=== PATIENT | male | born 2000 | race Caucasian/White ===

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

== ENCOUNTER 2021-02-14 16:29 | Emergency (ER) | payer OTHER, SELFPAY ==
--- NOTE | ~2021-02-14 | XR_ITS ---
EXAMINATION: XR finger 1st LT min 2V DATE: 02/14/2021 16:56 INDICATION: Pain to the mid to distal left thumb post blunt trauma TECHNIQUE: Dorsal palmar, lateral and oblique views of the left first digit were obtained COMPARISON: Left hand radiographs dated 12/02/2018 FINDINGS: Bone alignment is normal. No fracture. Joint spaces are normal. Soft tissue swelling about the first interphalangeal joint. IMPRESSION: 1. No osseous abnormality at the left thumb. Reviewed, dictated and finalized at location A.
[2021-02-14 16:40] VITALS: BP 128/86; PULSE 90; RESP 18; TEMP 37.1; O2SAT 99
--- NOTE | 2021-02-14 17:15 | ED.UPPEXIN ---
HPI - Extremity Injury (Upper) General Chief Complaint: Extremity Injury, Upper Stated Complaint: Thumb complaint Time Seen by Provider: 02/14/21 16:56 Source: patient and RN notes reviewed Mode of arrival: ambulatory Limitations: no limitations History of Present Illness HPI narrative: Patient presents today complaining of an injury to his left thumb. He was holding a 60 pound mallet with his right hand while making a patio at home 2 hours prior to arrival. He struck his left thumb with the mallet injuring it. He does report some tingling at the base of the thumb. Currently rates his pain 7/10. He did take some gabapentin that was leftover from a previous injury. Denies any relief. Pain increases with movement. Related Data Allergies Allergy/AdvReac Type Severity Reaction Status Date / Time No Known Drug Allergies Allergy Unknown Unknown Verified 06/12/20 15:57 Review of Systems Review of Systems: Narrative: CONSTITUTIONAL: Denies body aches, fever, chills, or sweats. EYES: Denies visual changes, redness, or discharge. ENT: Denies rhinorrhea, congestion, sore throat, or otalgia. CARDIOVASCULAR: Denies chest pain, palpitations, or edema. RESPIRATORY: Denies cough or dyspnea. GASTROINTESTINAL: Denies abdominal pain, nausea, vomiting, or diarrhea. GENITOURINARY: Denies dysuria or hematuria. SKIN: Denies rash, itching, or wounds. MUSCULOSKELETAL: Denies back pain, or myalgia. + Left thumb injury NEUROLOGIC: Denies headache, numbness, tingling, or weakness. PSYCH: Denies depression or anxiety. [facility] Past Medical History Medical History ADHD Bipolar 1 disorder Fracture of left wrist OCD (obsessive compulsive disorder) Social History Social History Smoking packs per day: 1 Smoking cigarettes per day: 20.0 Years smoked: 5 Smoking pack-years: 5.00 Smoking status: Current every day smoker Tobacco type: cigarettes Alcohol intake: unknown Substance use: unknown Gender identity (if verbalized by the patient): Male Comments At time of signature, I have reviewed and agree with nursing past medical, surgical, social and family history unless otherwise noted. Please see nursing chart for further information. There is no relevant family history pertinent to the presenting complaint Exam Narrative: Exam Narrative: GENERAL: Well-appearing, well-nourished, and in no acute distress. HEAD: Normocephalic, atraumatic. EYES: EOMI. No redness or drainage. Conjunctivae normal. ENT: Mucous membranes pink and moist. NECK: Normal AROM. CHEST: No respiratory distress. EXTREMITIES: Left thumb: Tenderness about the thumb. No edema or ecchymosis noted. Patient does not have a subungual hematoma that takes up to the proximal half of the thumbnail. Pain to the interphalangeal joint with range of motion. The range of motion is limited due to pain. Distal sensation intact. Capillary refill normal. No snuffbox tenderness. SKIN: Warm, dry, no rash. Capillary refill normal. Normal skin turgor. NEURO: No focal deficits. Alert and oriented x3. Gait steady. PSYCH: Normal affect. No signs of depression or anxiety. Course Vital Signs Vital signs: Vital Signs Temperature 98.7 F 02/14/21 16:40 Pulse Rate 90 02/14/21 16:40 Respiratory Rate 18 02/14/21 16:40 Blood Pressure 128/86 02/14/21 16:40 Pulse Oximetry 99 02/14/21 16:40 Temperature 98.7 F 02/14/21 16:40 Pulse Rate 90 02/14/21 16:40 Respiratory Rate 18 02/14/21 16:40 Blood Pressure 128/86 02/14/21 16:40 Pulse Oximetry 99 02/14/21 16:40 Reviewed. Pt has been instructed to follow up with his PCP regarding his elevated blood pressure today. Procedures Nail Trephination Nail Trephination #1: Nail Trephination Date: 02/14/21 Nail Trephination Time: 17:16 Time out: Yes Location (fing
== END 2021-02-14 17:26 | disposition home or self-care (01) ==
PROVIDERS: Emergency Provider Nurse Practitioner; PCP Physician Assistant
DX: S60.112A Contusion of left thumb with damage to nail, initial encounter (principal); W27.8XXA Contact with other nonpowered hand tool, initial encounter; F17.210 Nicotine dependence, cigarettes, uncomplicated
CPT/HCPCS: 11740; 73140; 99213; G0463

== ENCOUNTER 2021-12-12 14:43 | Emergency (ER) | payer SELFPAY ==
[2021-12-12 14:50] VITALS: BP 123/80; PULSE 85; RESP 16; TEMP 36.6; O2SAT 99
--- NOTE | 2021-12-12 15:38 | ED.URI ---
HPI - URI/Sore Throat General Chief Complaint: Upper Respiratory Infection Stated Complaint: Sore Throat Time Seen by Provider: 12/12/21 15:39 Source: patient and RN notes reviewed Mode of arrival: ambulatory Limitations: no limitations History of Present Illness HPI Narrative: 21 male presented for complaint of sore throat, onset today. He states pain is worse with swallowing. He called into work because he could not eat breakfast. Has been taking Tylenol. Endorses headache and postnasal drainage. Denies cough, shortness of breath, nausea, vomiting, diarrhea, fever or chills. denies sick contacts. He is not vaccinated for flu or Covid. NKDA. CESAR elicited complaint: cough Related Data Allergies Allergy/AdvReac Type Severity Reaction Status Date / Time No Known Drug Allergies Allergy Unknown Unknown Verified 12/12/21 15:07 Review of Systems Review of Systems: CONSTITUTIONAL: denies malaise, chills, sweats, fever EYES: Denies visual changes, redness, or discharge ENT: Reports sore throat denies rhinorrhea, congestion, sinus pain, otalgia CARDIOVASCULAR: Denies chest pain, palpitations, edema RESPIRATORY: Reports cough, post nasal drainage. Denies dyspnea GASTROINTESTINAL: Denies abdominal pain, nausea, vomiting, diarrhea SKIN: Denies rash or itching MUSCULOSKELETAL:denies myalgia NEUROLOGIC: Denies headache [facility] Past Medical History Medical History ADHD Bipolar 1 disorder Fracture of left wrist OCD (obsessive compulsive disorder) Social History Social History Smoking packs per day: 1 Smoking cigarettes per day: 20.0 Years smoked: 5 Smoking pack-years: 5.00 Smoking status: Current every day smoker Tobacco type: cigarettes Alcohol intake: unknown Substance use: unknown Gender identity (if verbalized by the patient): Male Exam Narrative: GENERAL: Ill-appearing, nontoxic HEAD: Normocephalic EYES: PERRLA, conjunctivae clear ENT: Mucous membranes moist. TM pearly ramachandran with dull light reflex bilaterally; no tragal tenderness. Oropharynx erythematous without lesions or exudate, no drooling, no hoarseness, no trismus, uvula midline. No tripod positioning, muffled voice, soft palate or pharyngeal wall bulging NECK: Supple. No lymphadenopathy CHEST: Clear to auscultation, breath sounds equal. No wheezing, rhonchi, rales, or stridor. No respiratory distress, speaks in full sentences. HEART: Regular rate and rhythm. No murmur heard. SKIN: Warm, dry, no rash. NEURO: Alert and oriented x3. PSYCH: Normal mood and affect Course Course Emergency Course: Patient is aware of diagnosis, understands and agrees to treatment plan. Anticipatory guidance given. Patient agrees to follow-up as directed and is aware of reasons to seek care at the emergency department. Portions of this record may have been created with voice recognition software Level of Care: Express Care Visit Vital Signs Vital signs: Vital Signs Temperature 97.8 F 12/12/21 14:50 Pulse Rate 85 12/12/21 14:50 Respiratory Rate 16 12/12/21 14:50 Blood Pressure 123/80 12/12/21 14:50 Pulse Oximetry 99 12/12/21 14:50 Temperature 97.8 F 12/12/21 14:50 Pulse Rate 85 12/12/21 14:50 Respiratory Rate 16 12/12/21 14:50 Blood Pressure 123/80 12/12/21 14:50 Pulse Oximetry 99 12/12/21 14:50 reviewed MDM - URI/Sore Throat MDM Narrative Medical decision making narrative: Strep positive, patient is appropriate for outpatient treatment with antibiotics. Differential Diagnosis Differential diagnosis: Likely upper respiratory infection, sinusitis, viral infection and pharyngitis Lab Data Attestation: I reviewed the patient's lab results. Labs: Strep Screen Positive Group A Strep *(Reference Range: Negative)* Discharge Plan Discharge Clinical Imp
== END 2021-12-12 15:50 | disposition home or self-care (01) ==
PROVIDERS: Emergency Provider Nurse Practitioner Family; PCP Physician Assistant
DX: J02.0 Streptococcal pharyngitis (principal)
CPT/HCPCS: 87880; 99213; G0463

== ENCOUNTER 2022-11-15 11:35 | Emergency (ER) | payer SELFPAY ==
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
[2022-11-15 11:45] VITALS: BP 123/88; PULSE 84; RESP 16; TEMP 37.2; O2SAT 100
== END 2022-11-15 12:35 | disposition home or self-care (01) ==
PROVIDERS: Emergency Provider Nurse Practitioner Family; PCP Emergency Medicine
DX: S01.81XA Laceration without foreign body of other part of head, initial encounter (principal); W19.XXXA Unspecified fall, initial encounter; F17.210 Nicotine dependence, cigarettes, uncomplicated
CPT/HCPCS: 12011; 99212; G0463

== ENCOUNTER 2023-03-11 10:05 | Emergency (ER) | payer OTHER, SELFPAY ==
--- NOTE | ~2023-03-11 | XR_ITS ---
Lumbosacral Spine: AP, oblique, and lateral views Clinical History: Pain Findings: The normal lordotic curve is maintained. The vertebral bodies and posterior elements are i ntact. The intervertebral disc spaces are preserved. The sacroiliac joints are normally outlined. Impression: No significant abnormality. Reviewed, dictated and finalized at [facility]. Impression: No significant abnormality.
[2023-03-11 10:10] VITALS: BP 126/71; PULSE 63; RESP 14; TEMP 37.1; O2SAT 99
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
== END 2023-03-11 11:04 | disposition home or self-care (01) ==
PROVIDERS: Emergency Provider Nurse Practitioner Family
DX: S39.012A Strain of muscle, fascia and tendon of lower back, initial encounter (principal); V38.6XXA Passenger in three-wheeled motor vehicle injured in noncollision transport accident in traffic accident, initial encounter; F17.210 Nicotine dependence, cigarettes, uncomplicated
CPT/HCPCS: 72110; 81003; 99213; G0463

== ENCOUNTER 2023-03-20 13:02 | Emergency (ER) | payer OTHER, SELFPAY ==
[2023-03-20 13:06] VITALS: BP 121/62; PULSE 76; RESP 20; TEMP 36.7; O2SAT 100
--- NOTE | 2023-03-20 13:43 | ED.EYEPROB ---
HPI - Eye Problem General Chief complaint: Eye Problems Stated complaint: right eye Time Seen by Provider: 03/20/23 13:43 Source: patient Mode of arrival: ambulatory Limitations: no limitations History of Present Illness HPI Narrative: 22-year-old male presents with complaint of right upper eyelid swelling, redness, tenderness starting yesterday. No other symptoms today. All systems reviewed and negative except as noted above. Related Data Allergies Allergy/AdvReac Type Severity Reaction Status Date / Time No Known Drug Allergies Allergy Unknown Unknown Verified 03/11/23 10:13 Review of Systems Review of Systems: CONSTITUTIONAL: Denies fever, chills, or sweats. EYES: Denies visual changes, redness, or discharge. Reports redness, swelling and tenderness to right upper eyelid. ENT: Denies rhinorrhea, congestion, sore throat, or otalgia. CARDIOVASCULAR: Denies chest pain, palpitations, or edema. RESPIRATORY: Denies cough or dyspnea. GASTROINTESTINAL: Denies abdominal pain, nausea, vomiting, or diarrhea. GENITOURINARY: Denies dysuria or hematuria. SKIN: Denies rash or itching. MUSCULOSKELETAL: Denies back pain, joint pain, or myalgia. NEUROLOGIC: Denies headache, numbness, or weakness. PSYCHIATRIC: Denies anxiety or depression. All other systems reviewed are negative, except as documented in HPI. [facility] Past Medical History Medical History ADHD Bipolar 1 disorder Fracture of left wrist OCD (obsessive compulsive disorder) Social History Social History Smoking packs per day: 1 Smoking cigarettes per day: 20.0 Years smoked: 5 Smoking pack-years: 5.00 Smoking status: Current every day smoker Tobacco type: cigarettes Alcohol intake: unknown Substance use: unknown Living arrangements: with family Gender identity (if verbalized by the patient): Male Comments At time of signature, agree with nursing past medical, surgical, social and family history. There is no relevant family history pertinent to the presenting complaint. Exam Narrative: GENERAL: This is a well-nourished, well-developed patient, in no apparent distress. HEAD: normocephalic, atraumatic. EYES: PERRL. Sclera clear/white. Vision is grossly intact. Erythema call Internal pustule medial aspect of right upper eyelid with tenderness on palpation. EARS: External ears normal NOSE: External nose normal NECK: Neck supple, non-tender without lymphadenopathy, masses or thyromegaly. CARDIOVASCULAR: Regular rate and rhythm without murmurs, gallops, or rubs. RESPIRATORY: Clear to auscultation. Breath sounds equal bilaterally. No wheezes, rales, or rhonchi. SKIN: warm, Dry, intact with no suspicious lesions or rash, good texture and turgor. NEURO: awake, alert, and oriented to person, place and time. There were no obvious focal neurologic abnormalities. EXTREMITIES: No joint tenderness, effusion, or edema noted. Course Course Level of Care: Express Care Visit Vital Signs Vital signs: Vital Signs Temperature 36.7 C 03/20/23 13:06 Pulse Rate 76 03/20/23 13:06 Respiratory Rate 20 03/20/23 13:06 Blood Pressure 121/62 03/20/23 13:06 Pulse Oximetry 100 03/20/23 13:06 Oxygen Delivery Room Air 03/20/23 13:06 Temperature 36.7 C 03/20/23 13:06 Pulse Rate 76 03/20/23 13:06 Respiratory Rate 20 03/20/23 13:06 Blood Pressure 121/62 03/20/23 13:06 Pulse Oximetry 100 03/20/23 13:06 Oxygen Delivery Room Air 03/20/23 13:06 Reviewed MDM - Eye Problem MDM Narrative Medical decision making narrative: Patient is aware of diagnosis, understands and agrees to treatment plan. Anticipatory guidance given. Patient agrees to follow-up as directed and is aware of reasons to seek care at the emergency department. Portions of this record may have been created with voice recognition software
== END 2023-03-20 13:50 | disposition home or self-care (01) ==
PROVIDERS: Emergency Provider Nurse Practitioner Family
DX: H00.021 Hordeolum internum right upper eyelid (principal); F17.210 Nicotine dependence, cigarettes, uncomplicated
CPT/HCPCS: 99213; G0463

== ENCOUNTER 2023-04-19 10:30 | Emergency (ER) | payer OTHER, SELFPAY ==
--- NOTE | 2023-04-19 10:37 | ED.LOWEXIN ---
HPI - Extremity Injury (Lower) General Chief Complaint: Extremity Injury, Lower Stated Complaint: Left Ankle Injury/Fall Time Seen by Provider: 04/19/23 10:46 Source: patient and RN notes reviewed Mode of arrival: ambulatory Limitations: no limitations History of Present Illness HPI Narrative: 22-year-old male presents with concern for ankle injury. He reports yesterday he fell down some steps on his front porch. His main complaint is an abrasion on the 1st digit the left foot. He reports he has been limping in order to avoid putting pressure on the abrasion. He reports some mild ankle discomfort. He denies decreased range of motion, strength, sensation and the ankle, foot or digits. He denies intervention. MD complaint: ankle injury Related Data Allergies Allergy/AdvReac Type Severity Reaction Status Date / Time No Known Drug Allergies Allergy Unknown Unknown Verified 03/11/23 10:13 Review of Systems Review of Systems: CONSTITUTIONAL: Denies malaise, chills, sweats, or fever. SKIN: Denies rash or itching, laceration, redness, warmth, swelling. Reports abrasion to the 1st digit of left foot MUSCULOSKELETAL: Reports left ankle pain NEUROLOGIC: Denies numbness, weakness All systems reviewed & are unremarkable except as noted in HPI and below PMFSH Past Medical History Medical History ADHD Bipolar 1 disorder Fracture of left wrist OCD (obsessive compulsive disorder) Social History Social History Smoking packs per day: 1 Smoking cigarettes per day: 20.0 Years smoked: 5 Smoking pack-years: 5.00 Smoking status: Current every day smoker Tobacco type: cigarettes Alcohol intake: unknown Substance use: unknown Living arrangements: with family Gender identity (if verbalized by the patient): Male Comments At time of signature, agree with nursing past medical, surgical, social and family history. There is no relevant family history pertinent to the presenting complaint Exam Narrative: GENERAL: Well-appearing, well-nourished, and in no acute distress. HEAD: Normocephalic, atraumatic. EYES: PERRLA, conjunctivae clear NECK: Supple. CHEST: Speaks in full sentences. No respiratory distress. HEART: Regular rate and rhythm. Normal and equal peripheral pulses. EXTREMITIES: Left ankle, foot, digits have normal strength and sensation, normal range of motion. No edema or ecchymosis. 5/5 strength with ankle and digit flexion and extension. Normal sensation with sensitivity to light touch and pain. No point tenderness. No no skin tenting, no devitalized tissue or atrophy, no trophic changes, no obvious deformity, alignment normal, nearby joints and structures intact. Distal pulses palpable and equal bilaterally, skin warm, dry, pink. Capillary refill less than 3 seconds. SKIN: Warm, dry, no rash. Abrasion noted to the distal 1st digit of the left foot with scabbing NEURO: Alert and oriented x3. PSYCH: Normal mood and affect Course Course Emergency Course: Neosporin and bandage applied to the abrasion Patient is aware of diagnosis, understands and agrees to treatment plan. Anticipatory guidance given. Patient agrees to follow-up as directed and is aware of reasons to seek care at the emergency department. Portions of this record may have been created with voice recognition software Level of Care: Express Care Visit Vital Signs Vital signs: Reviewed. MDM - Extremity Injury (Lower) MDM Narrative Medical decision making narrative: Patients injury and pain is consistent with musculoskeletal etiology. No signs of neurological or vascular compromise on exam. Compartments and tissues are soft without signs of compartment syndrome. Pain is felt appropriate for further evaluation on an outpatient basis. Critical Care Time Critical Care Time Critical Care Time: No Discharge Plan Discharg
[2023-04-19 10:41] VITALS: BP 145/68; PULSE 101; RESP 16; TEMP 36.9; O2SAT 98
[2023-04-19 10:43] VITALS: BP 145/68; PULSE 101; RESP 16; TEMP 36.9; O2SAT 98
== END 2023-04-19 10:59 | disposition home or self-care (01) ==
LOC: EXPBETH 10:35
PROVIDERS: Emergency Provider Nurse Practitioner
DX: S93.402A Sprain of unspecified ligament of left ankle, initial encounter (principal); S90.412A Abrasion, left great toe, initial encounter; S96.912A Strain of unspecified muscle and tendon at ankle and foot level, left foot, initial encounter; W10.9XXA Fall (on) (from) unspecified stairs and steps, initial encounter; F17.210 Nicotine dependence, cigarettes, uncomplicated
CPT/HCPCS: 99212; G0463

== ENCOUNTER 2023-11-09 15:32 | Emergency (ER) | payer OTHER, SELFPAY ==
[2023-11-09 15:40] VITALS: BP 148/75; PULSE 74; RESP 18; TEMP 36.7; O2SAT 99
--- NOTE | 2023-11-09 15:48 | ED.NAVMDI ---
HPI - Nausea/Vomiting/Diarrhea General Chief complaint: Nausea/Vomiting/Diarrhea Stated complaint: Vomiting Source: patient, RN notes reviewed and old records reviewed Mode of arrival: ambulatory Limitations: no limitations History of Present Illness HPI Narrative: 23-year-old male presents to Express Care with complaint nausea vomiting that started today. Patient states vomited 3 or 4 times. Patient states last vomited at noon today. Patient states also has body aches and chills. Patient denies diarrhea or known fever. Related Data Allergies Allergy/AdvReac Type Severity Reaction Status Date / Time No Known Drug Allergies Allergy Unknown Unknown Verified 11/09/23 15:48 Review of Systems Constitutional: Constitutional: Reports no additional constitutional complaints, Reports body ache(s), Reports chills, Denies fatigue, Denies fever(s) and Denies headache(s) Eyes: Eyes: Reports no additional eye complaints and Denies blurry vision ENT: Reports system reviewed and no additional complaints, except as documented, Denies vertigo, Denies dizziness, Denies ear discharge, Denies otalgia, Denies facial pain, Denies headache(s), Denies nasal congestion, Denies nasal discharge, Denies sinus pain, Denies sinus pressure and Denies sore throat Cardiovascular: Cardiovascular: Reports no additional cardiovascular complaints, Denies chest pain, Denies chest pain at rest, Denies rapid heart rate and Denies dyspnea Respiratory: Respiratory: Reports no additional respiratory complaints, Denies chest congestion, Denies cough, Denies pain on inspiration, Denies pain with cough and Denies dyspnea Gastrointestinal: Gastrointestinal: Denies abdominal pain, Denies diarrhea, Reports nausea and Reports vomiting Musculoskeletal: Musculoskeletal: Reports myalgias Integumentary/Breasts: Skin/Breast: Denies rash Neurologic: Reports system reviewed and no additional complaints, except as documented, Denies vertigo, Denies dizziness and Denies headache(s) Endocrine: Endocrine: Denies fatigue [facility] Past Medical History Medical History ADHD Bipolar 1 disorder Fracture of left wrist OCD (obsessive compulsive disorder) Social History Social History Smoking packs per day: 1 Smoking cigarettes per day: 20.0 Years smoked: 5 Smoking pack-years: 5.00 Smoking status: Current every day smoker Tobacco type: cigarettes Alcohol intake: unknown Substance use: unknown Living arrangements: with family Gender identity (if verbalized by the patient): Male Comments At the time of my signature, I reviewed and agree with the nursing past medical, surgical, social, and family history. There is no relevant family history pertinent to the patient complaint. Exam Const: General: cooperative, healthy appearing, no acute distress and well nourished Nutritional Appearance: well nourished Orientation/consciousness: patient oriented x3 Limitations: no limitations HENMT: Head: normal to inspection and normocephalic Ears: external ears normal, TM's normal bilaterally, EAC's normal and mastoids normal Face/Nose/Sinus: normal facial exam Face and sinus: normal facial exam Mouth: Yes Normal oral and palatal mucosa present, Yes oropharynx normal and Yes moist mucous membranes Throat: posterior oropharynx normal, tonsils normal, uvula midline and no uvular edema Eyes: General: appearance normal, both eyes and all related structures Sclera: sclerae normal Pupils: Equal, round and reactive pupils present Resp: Effort & Inspection: normal respiratory effort, able to speak in complete sentences, no audible wheezes, no cough, no respiratory distress and no retractions Auscultation: clear to auscultation bilaterally, no crackles, no rales, no rhonchi and no wheezes Cardio: Rate: regular rate Rhythm: regular rhythm GI: GI Palp: No abdominal te
[2023-11-09 16:08] LABS: Glucose Point of Care 83 mg/dl (65-105)
== END 2023-11-09 16:20 | disposition home or self-care (01) ==
PROVIDERS: Emergency Provider Registered Nurse
DX: A08.4 Viral intestinal infection, unspecified (principal); Z20.822 Contact with and (suspected) exposure to COVID-19; F17.210 Nicotine dependence, cigarettes, uncomplicated
CPT/HCPCS: 82948; 87426; 87804; 99213; G0463

== ENCOUNTER 2023-12-07 17:51 | Emergency (ER) | payer OTHER, SELFPAY ==
[2023-12-07 18:16] VITALS: BP 113/67; PULSE 80; RESP 16; TEMP 37; O2SAT 99
--- NOTE | 2023-12-07 18:58 | ED.DENTAL ---
HPI - Dental/Oral General Chief complaint: Dental/Oral Stated complaint: Toothache Time Seen by Provider: 12/07/23 18:47 Source: patient, RN notes reviewed and old records reviewed Mode of arrival: ambulatory Limitations: no limitations History of Present Illness HPI Narrative: 23-year-old male to Express Care with complaint of dental pain to right lower molar that has become acutely worse over past 2 days. Patient states that approximately 3 months ago he fractured tooth while eating I cough. Patient attempted to see dentist at that time and was told he would have to wait several months to be seen. Patient endorses he has been utilizing cannabis use for pain. Patient endorsing pain 2/10 at time of exam. Patient denies throat pain, throat swelling, fevers, headache. Teeth map: 1. Severity scale (1-10): 2 Related Data Allergies Allergy/AdvReac Type Severity Reaction Status Date / Time No Known Drug Allergies Allergy Unknown Unknown Verified 12/07/23 18:25 Review of Systems Review of Systems: All systems reviewed & are unremarkable except as noted in HPI and below Constitutional: Constitutional: Reports no additional constitutional complaints and Denies fever(s) Eyes: Eyes: Reports no additional eye complaints ENT: Denies bleeding gums, Reports dental pain, Denies facial pain, Denies headache(s), Denies lip swelling, Denies nasal obstruction and Denies neck pain Cardiovascular: Cardiovascular: Reports no additional cardiovascular complaints, Denies chest pain and Denies dyspnea Respiratory: Respiratory: Reports no additional respiratory complaints, Denies cough and Denies dyspnea Musculoskeletal: Musculoskeletal: Reports no additional musculoskeletal complaints Neurologic: Reports system reviewed and no additional complaints, except as documented Psychiatric: Psychiatric: Reports no additional psychiatric complaints [facility] Past Medical History Medical History ADHD Bipolar 1 disorder Fracture of left wrist OCD (obsessive compulsive disorder) Social History Social History Smoking packs per day: 1 Smoking cigarettes per day: 20.0 Years smoked: 5 Smoking pack-years: 5.00 Smoking status: Current every day smoker Tobacco type: cigarettes Alcohol intake: unknown Substance use: unknown Living arrangements: with family Gender identity (if verbalized by the patient): Male Comments At the time of my signature, I reviewed and agree with the nursing past medical, surgical, social, and family history. There is no relevant family history pertinent to the patient complaint. Exam Const: General: cooperative, healthy appearing, comfortable, no acute distress, alert and well nourished Nutritional Appearance: well nourished Orientation/consciousness: patient oriented x3 Limitations: no limitations HENMT: Head: normal to inspection Ears: external ears normal Face/Nose/Sinus: Normal external nose present, Normal nares present, normal facial exam, No erythema and No edema Face and sinus: normal facial exam, no erythema and no edema Mouth: Yes Normal oral and palatal mucosa present, Yes tongue normal, Yes oropharynx normal, Yes moist mucous membranes and No malodorous breath Teeth and gingiva: gingiva abnormal hypertrophic, edematous and tender; without any purulent discharge and other ( Fracture at number 32 with dental caries) Teeth image: 1. Eyes: General: appearance normal, both eyes and all related structures Neck: Neck: normal visual inspection, full ROM and no meningeal signs Lymphatic: no lymphadenopathy noted and no lymphedema noted Chest: Chest palpation & inspection: normal inspection of the chest Resp: Effort & Inspection: normal respiratory effort and able to speak in complete sentences Auscultation: clear to auscultation bilaterally Cardio: Jugular venous
== END 2023-12-07 19:10 | disposition home or self-care (01) ==
PROVIDERS: Emergency Provider Nurse Practitioner Family
DX: K02.9 Dental caries, unspecified (principal); K04.7 Periapical abscess without sinus; S02.5XXA Fracture of tooth (traumatic), initial encounter for closed fracture; X58.XXXA Exposure to other specified factors, initial encounter; F17.210 Nicotine dependence, cigarettes, uncomplicated
CPT/HCPCS: 99213; G0463

== ENCOUNTER 2024-05-27 11:46 | Emergency (ER) | payer BC, SELFPAY ==
[2024-05-27 11:54] VITALS: BP 118/69; PULSE 99; RESP 18; TEMP 37.3; O2SAT 99
--- NOTE | 2024-05-27 12:15 | ED.URI ---
HPI - URI/Sore Throat General Chief Complaint: Upper Respiratory Infection Stated Complaint: Body Aches/No Smell or Taste Time Seen by Provider: 05/27/24 12:15 Source: patient and RN notes reviewed Mode of arrival: ambulatory Limitations: no limitations History of Present Illness HPI Narrative: 24-year-old male presents with concern for loss of taste and smell, body aches, sinus pressure that started yesterday. Reports his boss needs a note to say he does not have COVID. He does not take any medications for his symptoms. MD elicited complaint: other (body aches, loss of taste and smell) Related Data Allergies Allergy/AdvReac Type Severity Reaction Status Date / Time No Known Drug Allergies Allergy Unknown Unknown Verified 12/07/23 18:25 Review of Systems Review of Systems: CONSTITUTIONAL: Reports malaise. Denies chills, sweats, or fever. EYES: Denies visual changes, redness, or discharge. ENT: Reports sinus pressure, loss of taste and smell. For rhinorrhea, congestion, sinus pain, otalgia and sore throat. CARDIOVASCULAR: Denies chest pain, palpitations, or edema. RESPIRATORY: Denies cough. Denies dyspnea. GASTROINTESTINAL: Denies abdominal pain, nausea, vomiting, diarrhea SKIN: Denies rash or itching. MUSCULOSKELETAL: Reports myalgia. NEUROLOGIC: Denies headache. All systems reviewed & are unremarkable except as noted in HPI and below PMFSH Past Medical History Medical History ADHD Bipolar 1 disorder Fracture of left wrist OCD (obsessive compulsive disorder) Social History Social History Smoking packs per day: 1 Smoking cigarettes per day: 20.0 Years smoked: 5 Smoking pack-years: 5.00 Smoking status: Current every day smoker Tobacco type: cigarettes Alcohol intake: unknown Substance use: unknown Living arrangements: with family Gender identity (if verbalized by the patient): Male Comments At time of signature, agree with nursing past medical, surgical, social and family history. There is no relevant family history pertinent to the presenting complaint Exam Narrative: GENERAL: Nontoxic-appearing, well-nourished, and in no acute distress. HEAD: Normocephalic EYES: PERRLA, conjunctivae clear ENT: Nares clear. Mucous membranes moist. TM pearly ramachandran with sharp light reflex bilaterally; no tragal tenderness. Oropharynx not erythematous without lesions. Tonsils not enlarged and without exudate, no drooling, no hoarseness, no trismus, uvula midline. NECK: Supple. No lymphadenopathy CHEST: Clear to auscultation, breath sounds equal. No wheezing, rhonchi, rales, or stridor. No respiratory distress, speaks in full sentences. HEART: Regular rate and rhythm. No murmur heard. SKIN: Warm, dry, no rash. NEURO: Alert and oriented x3. PSYCH: Normal mood and affect Course Course Emergency Course: Patient is aware of diagnosis, understands and agrees to treatment plan. Anticipatory guidance given. Patient agrees to follow-up as directed and is aware of reasons to seek care at the emergency department. Portions of this record may have been created with voice recognition software Level of Care: Express Care Visit Vital Signs Vital signs: Vital Signs Temperature 99.1 F 05/27/24 11:54 Pulse Rate 99 05/27/24 11:54 Respiratory Rate 18 05/27/24 11:54 Blood Pressure 118/69 05/27/24 11:54 Pulse Oximetry 99 05/27/24 11:54 Oxygen Delivery Room Air 05/27/24 11:54 Temperature 99.1 F 05/27/24 11:54 Pulse Rate 99 05/27/24 11:54 Respiratory Rate 18 05/27/24 11:54 Blood Pressure 118/69 05/27/24 11:54 Pulse Oximetry 99 05/27/24 11:54 Oxygen Delivery Room Air 05/27/24 11:54 Reviewed. MDM - URI/Sore Throat MDM Narrative Medical decision making narrative: Differential diagnosis considered: Fraser virus, strep pharyngitis, allergic rhinitis, up
[2024-05-27 12:26] LABS: EDINFLUASCREEN Negative; EDINFLUBSCREEN Negative
== END 2024-05-27 12:32 | disposition home or self-care (01) ==
PROVIDERS: Emergency Provider Nurse Practitioner
DX: B34.9 Viral infection, unspecified (principal); Z20.822 Contact with and (suspected) exposure to COVID-19; F17.210 Nicotine dependence, cigarettes, uncomplicated
CPT/HCPCS: 87426; 87804; 99213; G0463

== ENCOUNTER 2024-08-24 13:46 | Emergency (ER) | payer BC, SELFPAY ==
[2024-08-24 13:46] VITALS: BP 130/73; PULSE 77; RESP 18; TEMP 36.7; O2SAT 100
--- NOTE | 2024-08-24 14:00 | ED.GENADULT ---
HPI - General Adult General Chief complaint: Nausea/Vomiting/Diarrhea Stated complaint: Vomiting/Fever Source: patient and RN notes reviewed Mode of arrival: ambulatory Limitations: no limitations History of Present Illness HPI narrative: 24-year-old male presented for complaint of nausea, vomiting, and diarrhea. Onset 2 days. States symptoms are better today endorses mild nausea but was able to eat 10 piece chicken McNuggets prior to arrival. Denies abdominal pain, hematochezia, melena, or fever. Not taking anything for symptoms. Missed work and needs a note. Related Data Home Medications Medication Instructions Recorded Confirmed No Home Medications 08/24/24 08/24/24 Allergies Allergy/AdvReac Type Severity Reaction Status Date / Time No Known Drug Allergies Allergy Unknown Unknown Verified 08/24/24 14:06 Review of Systems Review of Systems: CONSTITUTIONAL: Denies body aches, fever, chills ENT: Denies rhinorrhea, congestion CARDIOVASCULAR: Denies chest pain, palpitations, or edema. RESPIRATORY: Denies cough or dyspnea. GASTROINTESTINAL: Endorses nausea, vomiting, diarrhea. Denies abdominal pain, hematochezia, melena, hematemesis GENITOURINARY: Denies dysuria, hematuria, or CVA tenderness. SKIN: Denies rash, itching, or wounds. MUSCULOSKELETAL: Denies back pain, joint pain, or myalgia. NEUROLOGIC: Denies headache, numbness, tingling, or weakness. All systems reviewed & are unremarkable except as noted in HPI and below PMFSH Past Medical History Medical History ADHD Bipolar 1 disorder Fracture of left wrist OCD (obsessive compulsive disorder) Social History Social History Smoking packs per day: 1 Smoking cigarettes per day: 20.0 Years smoked: 5 Smoking pack-years: 5.00 Smoking status: Current every day smoker Tobacco type: cigarettes Alcohol intake: unknown Substance use: unknown Living arrangements: with family Gender identity (if verbalized by the patient): Male Comments At time of signature, I have reviewed and agree with nursing past medical, surgical, social and family history unless otherwise noted. Please see nursing chart for further information. There is no relevant family history pertinent to the presenting complaint Exam Narrative: GENERAL: Well-appearing, and in no acute distress. EYES: EOMI. Conjunctivae normal. ENT: Mucous membranes pink and moist. CHEST: No respiratory distress. Clear to auscultation. HEART: Regular rate and rhythm. No murmur appreciated. Normal peripheral pulses. ABDOMEN: abd soft, nondistended, normal active bowel sounds. nontender abdomen, No guarding, rebound tenderness, asymmetry EXTREMITIES: Normal range of motion. No edema. SKIN: Warm, dry, no rash. Capillary refill normal. Normal skin turgor. NEURO: No focal deficits. Alert and oriented x3. PSYCH: Normal affect. Course Course Emergency Course: Patient is aware of diagnosis, understands and agrees to treatment plan. Anticipatory guidance given. Patient agrees to follow-up as directed and is aware of reasons to seek care at the emergency department. Portions of this record may have been created with voice recognition software Level of Care: Express Care Visit Medical Decision Making MDM Narrative Medical decision making narrative: Pt is in stable condition, tolerating PO. Negative flu and COVID. Discussed physical exam findings. Advised supportive measures and signs/symptoms to go to the ER. Pt is appropriate for outpt treatment and f/u. Differential Diagnosis Differential Diagnosis: Consider gastroenteritis, GERD, bowel obstruction or perforation, cholecystitis, appendicitis, hernia, mesenteric ischemia, pancreatitis, peritonitis, AAA Discharge Plan Discharge Clinical Impression: Nausea vomiting and diarrhea Patient Disposition: Home, Self-Care Condition: Stable Instructions: Antibiotic Form, Gastroenteritis (ED) Additional Instructions: Stay hydrated. Take small sips of fluid containing electrolytes frequently. Clear liquids (broth, jello, tea, sprite, pedialyte) Bent foods (bananas, rice, applesauce, toast, crackers) Avoid fatty, greasy, fried or spicy foods. Limit dairy until symptoms are improved. Recommend probiotic such as align or lactobacillus to help with symptoms. You should go to the hospital if you experience persistent nausea and vomiting that does not resolve and does not allow you to tolerate any food or fluids, fevers, increasing abdominal pain, persistent diarrhea, or for any other concerns. Follow up with primary care provider in 3 days. Prescriptions: No Action No Home Medications Follow-up/Referrals: PHYSICIAN,SOFTWARE RELIABILITY ENGINEER [Primary Care Provider] - Stand Alone Forms: Work/School Release IP Time of Disposition: 14:29
[2024-08-24 17:03] LABS: EDCOVIDSCREEN Negative (Negative); EDINFLUASCREEN Negative (Negative); EDINFLUBSCREEN Negative (Negative)
== END 2024-08-24 14:30 | disposition home or self-care (01) ==
PROVIDERS: Emergency Provider Nurse Practitioner Family
DX: R11.2 Nausea with vomiting, unspecified (principal); R19.7 Diarrhea, unspecified; Z20.822 Contact with and (suspected) exposure to COVID-19; F17.210 Nicotine dependence, cigarettes, uncomplicated
CPT/HCPCS: 87426; 87804; 99212; G0463

== ENCOUNTER 2024-11-05 11:46 | Emergency (ER) | payer BC, SELFPAY ==
--- OUTSIDE RECORDS SUMMARY | 2024-11-05 11:49 | XMS_ITS | Referral Summary ---
Author Organization [facility] Address [address] [place] [id number] Care Team Providers Care Well Service Floorperson Name Role Phone No, Physician Primary Care Provider [phone] Allergies No known active allergies Medications ondansetron ODT (ZOFRAN-ODT) 4 mg disintegrating tablet Dissolve 1 tablet oral every 4 hours as needed for nausea or vomiting. 15 tablet 1 Active naproxen (NAPROSYN) 500 mg tablet Take 1 tablet (500 mg total) by mouth 2 (two) times a day as needed for pain Take with food. 30 tablet 3 Active cyclobenzaprine (FLEXERIL) 10 mg tablet Take 1 tablet (10 mg total) by mouth 2 (two) times a day as needed for muscle spasms 20 tablet 3 Active Active Problems Problem Noted Date Diagnosed Date Fracture of metacarpal neck of left hand, closed 12/08/2015 Social History Tobacco Use Types Packs/Day Years Used Date Smoking Tobacco: Every Day Smokeless Tobacco: Never Personal Safety Answer Date Recorded Have you ever been in or are you currently in a harmful physical or emotional relationship or is someone making you feel afraid or unsafe? Denies 09/15/2023 Sex and Gender Information Value Date Recorded Sex Assigned at Not on file Legal Sex Male 7:03 PM PRINTING ESTIMATOR Gender Identity Not on file Sexual Orientation Not on file Last Filed Vital Signs Vital Sign Reading Time Taken Comments Blood Pressure 123/82 09/15/2023 1:00 PM PRINTING ESTIMATOR Pulse 53 09/15/2023 1:00 PM PRINTING ESTIMATOR Temperature 36.7 C (98 F) 09/15/2023 9:27 AM PRINTING ESTIMATOR Respiratory Rate 18 09/15/2023 1:00 PM PRINTING ESTIMATOR Oxygen Saturation 97% 09/15/2023 1:00 PM PRINTING ESTIMATOR Inhaled Oxygen Concentration - - Weight 77.1 kg (169 lb 15.6 oz) 09/15/2023 9:22 AM PRINTING ESTIMATOR Height 182.9 cm (6' 0.01 ) 2023 8:37 PM CD T Body Mass Index 23.05 2023 8:37 PM CDT Plan of Treatment Not on file Insurance Care Teams Well Service Floorperson Relationship Specialty Start Date End Date No, Physician PCP - General 09/15/23
--- OUTSIDE RECORDS SUMMARY | 2024-11-05 11:49 | XMS_ITS | Clinical Summary ---
Author Organization [facility] Address [address] [place] [address] Phone Care Team Providers Care Lockstitch Cup Setter Name Role Phone Provider, None Primary Care Provider Unavailabl e Allergies No known active allergies Medications traMADol (ULTRAM) 50 MG TabletIndicatio ns:Cellulitis of left thumb Take 1 Tablet by mouth every 8 hours as needed for Moderate or more severe pain. 12 Tablet 04/02/2023 Active Social History Tobacco Use Types Packs/Day Years Used Date Smoking Tobacco: Every Day Cigarettes 1 5 Smokeless Tobacco: Never Tobacco Cessation:Ready to Q uit: Not Asked; Counseling Given: Not Answered Alcohol Use Standard Drinks/Week Comments Not Currently 0 (1 standard drink = 0.6 oz pur e alcohol) Sex and Gender Information Value Date Recorded Sex Assigned at Not on file Legal Sex Male 11:54 PM CDT Gender Identity Not on file Sexual Orientation Not on file Last Filed Vital Signs Vital Sign Reading Time Taken Comments Blood Pressure 111/71 04/02/2023 3:42 PM CDT Pulse 90 04/02/2023 3:42 PM CDT Temperature 36.4 C (97.6 F) 04/02/2023 3:42 PM CDT Respiratory Rate 18 04/02/2023 3:42 PM CDT Oxygen Saturation 98% 04/02/2023 3:42 PM CDT Inhaled Oxygen Concentration - - Weight 77.1 kg (170 lb) 04/02/2023 3:42 PM CDT Height 182.9 cm (6') 04/02/2023 3:42 PM CDT Body Mass Index 23.06 04/02/2023 3:42 PM CDT Plan of Treatment Not on file Insurance MEDICAID [place] Care Teams Lockstitch Cup Setter Relationship Specialty Start Date End Date Provider, None [place] PCP - General 12/13/22
--- OUTSIDE RECORDS SUMMARY | 2024-11-05 11:49 | XMS_ITS | Clinical Summary ---
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 Gender Identity Not on file Sexual Orientation Not on file Obstetrics History Last Filed Vital Signs Vital Sign Reading Time Taken Comments Blood Pressure 123/82 09/15/2023 1:00 PM MERGERS AND ACQUISITIONS ATTORNEY Pulse 53 09/15/2023 1:00 PM MERGERS AND ACQUISITIONS ATTORNEY Temperature 36.7 C (98 F) 09/15/2023 9:27 AM MERGERS AND ACQUISITIONS ATTORNEY Respiratory Rate 18 09/15/2023 1:00 PM MERGERS AND ACQUISITIONS ATTORNEY Oxygen Saturation 97% 09/15/2023 1:00 PM MERGERS AND ACQUISITIONS ATTORNEY Inhaled Oxygen Concentration - - Weight 77.1 kg (169 lb 15.6 oz) 09/15/2023 9:22 AM MERGERS AND ACQUISITIONS ATTORNEY Height 182.9 cm (6' 0.01 ) 2023 8:37 PM CD T Body Mass Index 23.05 2023 8:37 PM CDT Plan of Treatment Health Maintenance Due Date Last Done Comments Depression Screening 2001 Hepatitis C Screening 2001 Pneumococcal vaccine <65 (1 of 1 - PPSV23 or PCV20) 2007 03/24/2003, 01/02/2002, 2001 Meningococcal B Vaccine (1 o f 2 - Patient Seeks Protection) 2017 Regular Well Visit/Exam 18-64 2019 DTaP/Tdap/Td Vaccine (7 - Td or Tdap) 05/15/2022 05/15/2012, 04/22/2006, 03/24/2003, Additional history exists Influenza Vaccine (#1) 2024 HPV Vaccines Completed 12/18/2017, 04/25/2016 Varicella Vaccines Completed 04/29/2019, 0 04/25/2016, 05/20/2002 Insurance [facility] Care Teams Entry Processor Relationship Specialty Start Date End Date No, Physician PCP - General 09/15/23
--- OUTSIDE RECORDS SUMMARY | 2024-11-05 11:49 | XMS_ITS ---
Author Organization [facility] Address [address] [place] [address] Phone Care Team Providers Care Staff Antisubmarine Officer Name Role Phone Provider, None Primary Care Provider Cielo garrett [facility] Status:Enrolled (Active) Start date:10/21/2024 Enrollment date:10/21/2024 Related social drivers of health:Intimate Partner Violence, Social Connections, Alcohol Use, Tobacco Use, Financial Resource Strain,Depression, Stress, Physical Activity, Food Insecurity, Transportation Needs, Housing Stability, Utilities Continued Care and Services Coordination
[2024-11-05 12:04] VITALS: BP 118/67; PULSE 92; RESP 16; TEMP 37; O2SAT 100
--- NOTE | 2024-11-05 13:32 | ED_ITS ---
HPI - URI/Sore Throat General Chief Complaint: Upper Respiratory Infection Stated Complaint: aches/cough/fever Source: patient, family, RN notes reviewed and old records reviewed Mode of arrival: ambulatory Limitations: no limitations History of Present Illness HPI Narrative: 24 year old male accompanied by significant other with complaints of being ill since Saturday morning with cough, sinus congestion and pressure, with body aches and fevers starting on Saturday. Patient reports that fever highest Saturday evening of 101.3R. Patient reports that he has been taking Tylenol for his symptoms. MD elicited complaint: fever, cough, rhinorrhea, nasal congestion and other (Body aches) Onset (ago): day(s) (2) Severity: moderate Able to tolerate fluids by mouth: Yes Treatments prior to arrival: acetaminophen Related Data Allergies Allergy/AdvReac Type Severity Reaction Status Date / Time No Known Drug Allergies Allergy Unknown Unknown Verified 11/05/24 12:18 Review of Systems 2 Review of Systems: CONSTITUTIONAL: reports malaise, chills, sweats, or fever. EYES: Denies visual changes, redness, or discharge. ENT: Reports rhinorrhea, congestion, sinus pain, no otalgia and no sore throat. CARDIOVASCULAR: Denies chest pain, palpitations, or edema. RESPIRATORY: Reports cough.? Denies dyspnea. GASTROINTESTINAL: Denies abdominal pain, nausea, vomiting, diarrhea SKIN: Denies rash or itching. MUSCULOSKELETAL:Reports myalgia. NEUROLOGIC: Denies headache. All systems reviewed & are unremarkable except as noted in HPI and below PMFSH Past Medical History Medical History OCD (obsessive compulsive disorder) Fracture of left wrist Bipolar 1 disorder ADHD Social History Social History (Updated 11/07/24 @ 15:51 by Hailey Jacobo NP) Smoking packs per day: 1 Smoking cigarettes per day: 20.0 Years smoked: 5 Smoking pack-years: 5.00 Smoking status: Current every day smoker Tobacco type: cigarettes and e-cigarettes/vaping Additional smoking assessment comments: Former cigarette smoker now vapes Alcohol intake: unknown Substance use: unknown Living arrangements: with family Gender identity (if verbalized by the patient): Male Comments At time of signature, agree with nursing past medical, surgical, social and family history. There is no relevant family history pertinent to the presenting complaint Exam Narrative: GENERAL: ill-appearing, well-nourished, and in no acute distress. HEAD: Normocephalic EYES: PERRLA, conjunctivae clear ENT: Nares clear, turbinates edematous and erythematous, clear discharge. Mucous membranes moist. TM pearly ramachandran with dull light reflex bilaterally; no tragal tenderness. Oropharynx erythematous without lesions. Tonsils not enlarged and without exudate, no drooling, no hoarseness, no trismus, uvula midline.post nasal drainage NECK: Supple. No lymphadenopathy CHEST: Clear to auscultation, breath sounds equal. No wheezing, rhonchi, rales, or stridor. No respiratory distress, speaks in full sentences.cough noted no tachypnea or retractions SAO2 100% on room air HEART: Regular rate and rhythm. No murmur heard. SKIN: Warm, dry, no rash. NEURO: Alert and oriented x3. PSYCH: Normal mood and affect Course Course Emergency Course: Patient is aware of diagnosis, understands and agrees to treatment plan.? Anticipatory guidance given.? Patient agrees to follow-up as directed and is aware of reasons to seek care at the emergency department. Portions of this record may have been created with voice recognition software Level of Care: Express Care Visit Vital Signs Vital signs: Vital Signs Temperature 37.0 C 11/05/24 12:04 Pulse Rate 92 11/05/24 12:04 Respiratory Rate 16 11/05/24 12:04 Blood Pressure 118/67 11/05/24 12:04 Pulse Oximetry 100 11/05/24 12:04 Oxygen Delivery Room Air 11/05/24 12:04 Temperature 37.0 C 11/05/24 12:04 Pulse Rate 92 11/05/24 12:04 Respiratory Rate 16 11/05/24 12:04 Blood Pressure 118/67 11/05/24 12:04 Pulse Oximetry 100 11/05/24 12:04 Oxygen Delivery Room Air 11/05/24 12:04 Reviewed MDM - URI/Sore Throat MDM Narrative Medical decision making narrative: Differential diagnosis considered: Fraser virus, strep pharyngitis, allergic rhinitis, upper respiratory tract infection, sinusitis, rhinosinusitis, nasopharyngitis. viral pharyngitis, otitis media, otitis externa, pneumonia, bronchitis, viral cough syndrome, viral syndrome, and influenza.? Exam findings show no acute concerns or changes; patient is non-toxic appearing and is in no distress.? Patient is appropriate for outpatient treatment and follow-up. Differential Diagnosis Differential diagnosis: Likely upper respiratory infection, otitis media, sinusitis, viral infection, bronchitis, influenza and other (COVID, cough) Lab Data Attestation: I reviewed the patient's lab results. Lab results narrative: Influenza A positive, Influenza B negative, COVID antigen negative Labs: Lab Results 11/05/24 Range/Units 12:16 POC Influenza A Ag Positive (Negative) POC Influenza B Ag Negative (Negative) POC SARS CoV-2 Ag Negative (Negative) reviewed Critical Care Time Critical Care Time Critical Care Time: No Discharge Plan Discharge Clinical Impression: Influenza A Patient Disposition: Home, Self-Care Condition: Stable Instructions: Influenza (ED) Additional Instructions: Increase fluids especially juices and water [id number] cough and cold medicine of your choice for your symptoms Zyrtec Claritin or Jacquie daily heat to the face 20-30 minutes 4-6 times a day for pain Salt water gargles, throat lozenges or throat sprays as desired Tamiflu per patient request If your symptoms persist, change or worsen significantly before you can contact your personal physician then please, without delay, go to the emergency department for further evaluation. Follow-up with PCP in 7-10 days or sooner if needed You must be fever free without use of Tylenol or ibuprofen before you return to work Patient Language: German Prescriptions: New oseltamivir [Tamiflu] 75 mg capsule 75 mg PO Q12H 5 Days Qty: 10 0RF Follow-up/Referrals: PHYSICIAN,SERVICE CREW SUPERVISOR [Primary Care Provider] - Stand Alone Forms: Work/School Release IP Time of Disposition: 13:35 Quality [place] Coma Scale Eyes: Open Verbal: Oriented and Alert Motor: Follows Commands Matthieu Coma Total Score: 15
[2024-11-05 13:36] LABS: EDCOVIDSCREEN Negative (Negative); EDINFLUASCREEN Positive (Negative); EDINFLUBSCREEN Negative (Negative)
== END 2024-11-05 13:43 | disposition home or self-care (01) ==
PROVIDERS: Emergency Provider Registered Nurse
DX: J10.1 Influenza due to other identified influenza virus with other respiratory manifestations (principal); Z20.822 Contact with and (suspected) exposure to COVID-19; F17.290 Nicotine dependence, other tobacco product, uncomplicated
CPT/HCPCS: 87426; 87804; 99213; G0463

== ENCOUNTER 2025-05-07 14:08 | Emergency (ER) | payer SELFPAY ==
--- NOTE | ~2025-05-07 | XR_ITS ---
XR finger 4th RT min 2V 05/07/2025 14:35 INDICATION: Right fourth finger pain after blunt trauma PROCEDURE: 4 views right fourth finger COMPARISON: No prior studies for comparison. FINDINGS: Fracture, dislocation or subluxation is not identified. The soft tissues appear within norm al limits. No foreign bodies are identified. IMPRESSION: 1: NO ACUTE BONE OR JOINT ABNORMALITY IDENTIFIED. Reviewed, dictated and finalized at location A.
[2025-05-07 14:10] VITALS: BP 116/64; PULSE 61; RESP 16; TEMP 37; O2SAT 100
--- OUTSIDE RECORDS SUMMARY | 2025-05-07 14:10 | XMS_ITS | Clinical Summary ---
Author Organization [facility] Address [address] [place] [address] Phone Care Team Providers Care Director Of Primary Care Name Role Phone Provider, None Primary Care [...] of Treatment Not on file Insurance MEDICAID [place] Care Teams Director Of Primary Care Relationship Specialty Start Date End Date Provider, None [place] PCP - General 12/13/22
--- OUTSIDE RECORDS SUMMARY | 2025-05-07 14:14 | XMS_ITS | Clinical Summary ---
Author Organization [facility] Address [address] [place] [id number] Care Team Providers Care Chemical Mixer Name Role Phone No, Physician Primary Care Provider [phone] Allergies No known active allergies Medications ondansetron [...] on file Legal Sex Male 7:03 PM CUSTOMER SUCCESS ASSOCIATE Gender Identity Not on file Sexual Orientation Not on file Obstetrics History Last Filed Vital Signs Vital Sign Reading Time Taken Comments Blood Pressure 123/82 09/15/2023 1:00 PM CUSTOMER SUCCESS ASSOCIATE Pulse 53 09/15/2023 1:00 PM CUSTOMER SUCCESS ASSOCIATE Temperature 36.7 C (98 F) 09/15/2023 9:27 AM CUSTOMER SUCCESS ASSOCIATE Respiratory Rate 18 09/15/2023 1:00 PM CUSTOMER SUCCESS ASSOCIATE Oxygen Saturation 97% 09/15/2023 1:00 PM CUSTOMER SUCCESS ASSOCIATE Inhaled Oxygen Concentration - - Weight 77.1 kg (169 lb 15.6 oz) 09/15/2023 9:22 AM CUSTOMER SUCCESS ASSOCIATE Height 182.9 cm (6' 0.01) 2023 8:37 PM CD T Body Mass Index 23.05 2023 8:37 PM CDT Plan of Treatment Health Maintenance Due Date Last Done Comments Depression Screening 2001 Hepatitis C Screening 2001 Pneumococcal vaccine <65 (1 of 1 - PPSV23, PCV20, or PCV21) 2007 03/24/2003, 01/02/2002, 2001 Meningococcal B Vaccine (1 o f 2 - Standard) 2017 Regular Well Visit/Exam 18-64 2019 DTaP/Tdap/Td Vaccine (7 - Td or Tdap) 05/15/2022 05/15/2012, 04/22/2006, 03/24/2003, Additional history exists Influenza Vaccine (#1) 2025 Hepatitis B Screening Completed 01/02/2002 , 2001, 2001 HPV Vaccines Completed 12/18/2017, 04/25/2016 Varicella Vaccines Completed 04/29/2019, 0 04/25/2016, 05/20/2002 Insurance [facility] Care Teams Chemical Mixer Relationship Specialty Start Date End Date No, Physician PCP - General 09/15/23
--- NOTE | 2025-05-07 14:22 | ED.UPPEXIN ---
HPI - Extremity Injury (Upper) General Chief Complaint: Extremity Injury, Upper Stated Complaint: Right Ring Finger Injury Time Seen by Provider: 05/07/25 14:22 Source: patient Mode of arrival: ambulatory Limitations: no limitations History of Present Illness HPI narrative: 24 yo M presents with pain to R ring finger. Hit himself with 2lb mallet yesterday. Pain to distal aspect finger. Concerned for fracture. CMS intact. All systems reviewed and negative except as noted above. Related Data Home Medications ?Medication ?Instructions ?Recorded ?Confirmed ?Last Taken ?Type No Home Medications 05/07/25 05/07/25 Unknown History Allergies Allergy/AdvReac Type Severity Reaction Status Date / Time No Known Drug Allergies Allergy Unknown Unknown Verified 05/07/25 14:11 [facility] Past Medical History Medical History OCD (obsessive compulsive disorder) Fracture of left wrist Bipolar 1 disorder ADHD Social History Social History (Updated 11/07/24 @ 15:51 by Hailey Jacobo NP) Smoking packs per day: 1 Smoking cigarettes per day: 20.0 Years smoked: 5 Smoking pack-years: 5.00 Smoking status: Current every day smoker Tobacco type: cigarettes and e-cigarettes/vaping Additional smoking assessment comments: Former cigarette smoker now vapes Alcohol intake: unknown Substance use: unknown Living arrangements: with family Gender identity (if verbalized by the patient): Male Comments At time of signature, agree with nursing past medical, surgical, social and family history. There is no relevant family history pertinent to the presenting complaint. Exam Narrative: GENERAL: This is a well-nourished, well-developed patient, in no apparent distress. HEAD: normocephalic, atraumatic. EYES: PERRL. Sclera clear/white. Vision is grossly intact. EARS: External ears normal NOSE: External nose normal NECK: Neck supple, non-tender without lymphadenopathy, masses or thyromegaly. CARDIOVASCULAR: Regular rate and rhythm without murmurs, gallops, or rubs. RESPIRATORY: Clear to auscultation. Breath sounds equal bilaterally. No wheezes, rales, or rhonchi. SKIN: warm, Dry, intact with no suspicious lesions or rash, good texture and turgor. NEURO: awake, alert, and oriented to person, place and time. There were no obvious focal neurologic abnormalities. EXTREMITIES: tender to R ring finger from middle phalanx extending to distal phalanx. no swelling or deformity noted. no nail damage. Course Course Level of Care: Express Care Visit Vital Signs Vital signs: Vital Signs Temperature 37.0 C 05/07/25 14:10 Pulse Rate 61 05/07/25 14:10 Respiratory Rate 16 05/07/25 14:10 Blood Pressure 116/64 05/07/25 14:10 Pulse Oximetry 100 05/07/25 14:10 Oxygen Delivery Room Air 05/07/25 14:10 Temperature 37.0 C 05/07/25 14:10 Pulse Rate 61 05/07/25 14:10 Respiratory Rate 16 05/07/25 14:10 Blood Pressure 116/64 05/07/25 14:10 Pulse Oximetry 100 05/07/25 14:10 Oxygen Delivery Room Air 05/07/25 14:10 reviewed MDM - Extremity Injury (Upper) MDM Narrative Medical decision making narrative: x-ray of R ring finger negative for fracture. discussed results with pt. Recommend OTC pain meds, ice, rest. Differential Diagnosis Differential diagnosis: Likely finger sprain, fracture of hand and other (finger fracture) Imaging Data My impression: agree with radiologist Radiologist's impression: XR finger 4th RT min 2V 05/07/2025 14:35 INDICATION: Right fourth finger pain after blunt trauma PROCEDURE: 4 views right fourth finger COMPARISON: No prior studies for comparison. FINDINGS: Fracture, dislocation or subluxation is not identified. The soft tissues appear within normal limits. No foreign bodies are identified. IMPRESSION: 1: NO ACUTE BONE OR JOINT ABNORMALITY IDENTIFIED. Discharge Plan Discharge Clinical Impression: Contusion of right ring finger Qualifiers: Encounter type: initial encounter Damage to nail status: without damage Qualified Code(s): S60.041A - Contusion of right ring finger without damage to nail, initial encounter Patient Disposition: Home Condition: Stable Instructions: Contusion in Adults (ED) Additional Instructions: the x-ray of your right ring finger was negative for fracture. Take ibuprofen or Tylenol every 6-8 hours as needed for pain. Apply ice as needed for pain. See your doctor as needed. Patient Language: Norwegian Prescriptions: No Action No Home Medications Follow-up/Referrals: PHYSICIAN,HIGH SCHOOL SCIENCE TEACHER [Primary Care Provider] - Time of Disposition: 15:29
== END 2025-05-07 15:32 | disposition home or self-care (01) ==
PROVIDERS: Emergency Provider Nurse Practitioner Family
DX: S60.041A Contusion of right ring finger without damage to nail, initial encounter (principal); W27.8XXA Contact with other nonpowered hand tool, initial encounter; F17.290 Nicotine dependence, other tobacco product, uncomplicated
CPT/HCPCS: 29130; 73140; 99213; G0463

== ENCOUNTER 2025-07-13 10:28 | Emergency (ER) | payer MEDICAID, SELFPAY ==
[2025-07-13 10:34] VITALS: BP 144/70; PULSE 103; RESP 18; TEMP 36.9; O2SAT 99
[2025-07-13 10:55] LABS: EDCOVIDSCREEN Negative (Negative); EDINFLUASCREEN Negative (Negative); EDINFLUBSCREEN Negative (Negative)
[2025-07-13] MEDS: ONDANSETRON HCL ODT 4 MG TABLET PO (11:12)
--- NOTE | 2025-07-13 11:18 | ED_ITS ---
HPI - General Adult General Chief complaint: Upper Respiratory Infection Stated complaint: nausea Source: patient Mode of arrival: ambulatory Limitations: no limitations History of Present Illness HPI narrative: Patient presents for evaluation of nausea, vomiting and diarrhea. Symptom onset this morning. He ate some shrimp last night and is wondering whether his symptoms are related. He has experienced body aches, hot flashes, chills, cough, and sinus congestion. He denies objective fever, SOB, and abominal pain. A family member has similar symptoms. He is not taking any medications to assist with his symptoms. Related Data Allergies Allergy/AdvReac Type Severity Reaction Status Date / Time No Known Drug Allergies Allergy Unknown Unknown Verified 07/13/25 10:38 Review of Systems Review of Systems: CONSTITUTIONAL: Reports hot flashes and chills. Denies objective fever. EYES: Denies visual changes, redness, or discharge. ENT: Reports sinus congestion without drainage. Denies otalgia. CARDIOVASCULAR: Denies chest pain, palpitations, or edema. RESPIRATORY: Reports cough. Denies shortness of breath. GASTROINTESTINAL: Reports nausea, vomiting, diarrhea. Denies abdominal pain. GENITOURINARY: Denies dysuria or hematuria. SKIN: Denies rash or itching. MUSCULOSKELETAL: Denies back pain, joint pain, or myalgia. NEUROLOGIC: Denies headache, numbness, dizziness, or weakness. PSYCHIATRIC: Denies anxiety or depression. REPLACED BY [facility] Past Medical History Medical History OCD (obsessive compulsive disorder) Fracture of left wrist Bipolar 1 disorder ADHD Surgical History Surgical History No pertinent past surgical history Family History Family History Mother Family history non-contributory Social History Social History Smoking packs per day: 1 Smoking cigarettes per day: 20.0 Years smoked: 5 Smoking pack-years: 5.00 Smoking status: Current every day smoker Tobacco type: cigarettes and e-cigarettes/vaping Additional smoking assessment comments: Former cigarette smoker now vapes Alcohol intake: unknown Substance use: unknown Living arrangements: with family Gender identity (if verbalized by the patient): Male Exam Narrative: GENERAL: Well-appearing, well-nourished, and in no acute distress. HEAD: Normocephalic, atraumatic. EYES: PERRLA and EOMI. ENT: Nares clear, no rhinorrhea or epistaxis. Mucous membranes moist. Oropharynx without tonsillar hypertrophy exudate or other lesions. Bilateral TMs pearly ramachandran nonbulging NECK: Supple. No adenopathy or masses. No carotid bruits or JVD CHEST: Clear to auscultation. No respiratory distress. No wheezes rales or rhonchi HEART: Regular rate and rhythm. No murmur heard. Normal peripheral pulses. ABDOMEN: Soft, nontender, nondistended, normal active bowel sounds. EXTREMITIES: Normal range of motion. No edema. SKIN: Warm, dry, no rash. NEURO: No focal deficits. Alert and oriented x3. PSYCH: Normal mood and affect. Course Course Emergency Course: This is a 25-year-old male who presented for evaluation nausea, vomiting, diarrhea. COVID and influenza negative. Given Zofran while here. Discharge with Zofran. Follow-up with primary provider. Increase hydration. Go to the ER for worsening symptoms. Patient in agreement with plan of care Level of Care: Express Care Visit Vital Signs Vital signs: Vital Signs Temperature 36.9 C 07/13/25 10:34 Pulse Rate 103 H 07/13/25 10:34 Respiratory Rate 18 07/13/25 10:34 Blood Pressure 144/70 H 07/13/25 10:34 Pulse Oximetry 99 07/13/25 10:34 Oxygen Delivery Room Air 07/13/25 10:34 Temperature 36.9 C 07/13/25 10:34 Pulse Rate 103 H 07/13/25 10:34 Respiratory Rate 18 07/13/25 10:34 Blood Pressure 144/70 H 07/13/25 10:34 Pulse Oximetry 99 07/13/25 10:34 Oxygen Delivery Room Air 07/13/25 10:34 Medical Decision Making Vital Signs Vital Signs: Vital Signs Temperature 36.9 C 07/13/25 10:34 Pulse Rate 103 H 07/13/25 10:34 Respiratory Rate 18 07/13/25 10:34 Blood Pressure 144/70 H 07/13/25 10:34 Pulse Oximetry 99 07/13/25 10:34 Oxygen Delivery Room Air 07/13/25 10:34 Temperature 36.9 C 07/13/25 10:34 Pulse Rate 103 H 07/13/25 10:34 Respiratory Rate 18 07/13/25 10:34 Blood Pressure 144/70 H 07/13/25 10:34 Pulse Oximetry 99 07/13/25 10:34 Oxygen Delivery Room Air 07/13/25 10:34 Lab Data Labs: Lab Results 07/13/25 Range/Units 10:53 POC Influenza A Ag Negative (Negative) POC Influenza B Ag Negative (Negative) POC SARS CoV-2 Ag Negative (Negative) Discharge Plan Discharge Clinical Impression: Nausea & vomiting Patient Disposition: Home Condition: Stable Instructions: Antibiotic Form, Acute Nausea and Vomiting (ED) Patient Language: Citizen Of [place] Prescriptions: New ondansetron 4 mg tablet,disintegrating 4 mg PO Q6H PRN (Reason: nausea and vomiting) Qty: 15 0RF Follow-up/Referrals: Austen Rodriguez MD [Physician, Family Practice] Time of Disposition: 11:12
--- OUTSIDE RECORDS SUMMARY | 2025-07-13 12:46 | XMS_ITS | Clinical Summary ---
Author Organization [facility] Address [address] [place] [address] Phone Care Team Providers Care Cook Supervisor Name Role Phone Provider, None Primary Care [...] of Treatment Not on file Insurance MEDICAID [place] Care Teams Cook Supervisor Relationship Specialty Start Date End Date Provider, None [place] PCP - General 12/13/22
== END 2025-07-13 12:01 | disposition home or self-care (01) ==
PROVIDERS: Emergency Provider Nurse Practitioner
DX: R11.2 Nausea with vomiting, unspecified (principal); F17.210 Nicotine dependence, cigarettes, uncomplicated; Z20.822 Contact with and (suspected) exposure to COVID-19
CPT/HCPCS: 87426; 87804; 99213; A9270; G0463

== ENCOUNTER 2025-08-02 11:29 | Emergency (ER) | payer BC, SELFPAY ==
[2025-08-02 11:34] VITALS: BP 132/74; PULSE 74; RESP 18; TEMP 36.9; O2SAT 100
--- NOTE | 2025-08-02 11:46 | ED.URI ---
HPI - URI/Sore Throat General Chief Complaint: Upper Respiratory Infection Stated Complaint: throat History of Present Illness HPI Narrative: patient is a 25-year-old male, past medical history significant for bipolar disorder OCD, presents to [facility] with 2 day history of sore throat, rhinorrhea, nasal congestion and a dry cough. He has not had a fever. He denies known sick contacts or COVID-19 exposures. He has not taken any medication for symptom relief. He denies any additional associated symptoms modifying factors. He is tobacco and THC dependent. No additional illicit drug use reported Related Data Allergies Allergy/AdvReac Type Severity Reaction Status Date / Time No Known Drug Allergies Allergy Unknown Unknown Verified 08/02/25 11:37 Review of Systems Constitutional: Constitutional: Reports as per HPI ENT: Reports as per HPI Respiratory: Respiratory: Reports as per HPI PMFSH Past Medical History Medical History OCD (obsessive compulsive disorder) Fracture of left wrist Bipolar 1 disorder ADHD Surgical History Surgical History No pertinent past surgical history Family History Family History Mother Family history non-contributory Social History Social History Smoking packs per day: 1 Smoking cigarettes per day: 20.0 Years smoked: 5 Smoking pack-years: 5.00 Tobacco type: cigarettes and e-cigarettes/vaping Additional smoking assessment comments: Former cigarette smoker now vapes Alcohol intake: unknown Substance use: unknown Living arrangements: with family Gender identity (if verbalized by the patient): Male Exam Const: General: healthy appearing Nutritional Appearance: well nourished Orientation/consciousness: patient oriented x3 Limitations: no limitations Other: patient appears older than stated age HENMT: Head: normal to inspection Ears: external ears normal and TM's normal bilaterally Face/Nose/Sinus: Normal external nose present Face and sinus: normal facial exam and sinuses nontender Mouth: Yes Normal oral and palatal mucosa present and Yes lip normal Teeth and gingiva: dentition normal Throat: uvula midline Other: mild pharyngeal injection noted, no tonsil hypertrophy, uvula midline, no petechiae noted, no exudate present no trismus Neck: Neck: normal visual inspection, no lymphadenopathy and no meningeal signs Resp: Effort & Inspection: normal respiratory effort Auscultation: clear to auscultation bilaterally Cardio: Rate: regular rate Rhythm: regular rhythm Skin: General skin exam: normal color Rashes: no rashes Wounds: no wounds Neuro: General: patient oriented x3, moves all extremities, no meningeal signs, no focal motor deficits and CN's II-XI intact bilaterally Cranial nerves: Yes Nystagmus not present Speech: normal speech Gait exam (Neuro): Normal gait present Extrem: General: normal to inspection Course Course Emergency Course: rapid strep is negative, will reflects for culture. Patient's symptoms and examination are consistent with a viral URI, plan to treat with a short steroid course and cough suppressant, pushing fluids and rest. Follow-up with PCP in 3-5 days if symptoms not improving. Tobacco cessation is encouraged. Level of Care: Express Care Visit ([id number]) Vital Signs Vital signs: Vital Signs Temperature 36.9 C 08/02/25 11:34 Pulse Rate 74 08/02/25 11:34 Respiratory Rate 18 08/02/25 11:34 Blood Pressure 132/74 08/02/25 11:34 Pulse Oximetry 100 08/02/25 11:34 Oxygen Delivery Room Air 08/02/25 11:34 Temperature 36.9 C 08/02/25 11:34 Pulse Rate 74 08/02/25 11:34 Respiratory Rate 18 08/02/25 11:34 Blood Pressure 132/74 08/02/25 11:34 Pulse Oximetry 100 08/02/25 11:34 Oxygen Delivery Room Air 08/02/25 11:34 MDM - URI/Sore Throat MDM Narrative Medical decision making narrative: Negative strep, will reflex for culture Differential Diagnosis Differential diagnosis: Likely upper respiratory infection, sinusitis, viral infection, bronchitis and pharyngitis Discharge Plan Discharge Clinical Impression: Upper respiratory infection Qualifiers: URI type: acute nasopharyngitis (common cold) Qualified Code(s): J00 - Acute nasopharyngitis [common cold] Patient Disposition: Home Condition: Stable Instructions: Antibiotic Form, Upper Respiratory Infection (ED) Additional Instructions: PUSH FLUIDS, REST, CONTINUE ORAL STEROIDS AND COUGH SUPPRESSANT DIRECTED. FOLLOW-UP WITH YOUR PRIMARY DOCTOR IF YOUR SYMPTOMS ARE NOT RESOLVING IN 3-5 DAYS. Patient Language: Slovak Prescriptions: New prednisone 20 mg tablet 40 mg PO DAILY 5 Days Qty: 10 0RF promethazine-DM 6.25-15 mg/5 mL syrup 5 ml PO Q4-6H PRN (Reason: cough) Qty: 118 0RF Follow-up/Referrals: PHYSICIAN,CLAIMS SERVICE REPRESENTATIVE [Primary Care Provider, Internal Medicine] Time of Disposition: 11:54
[2025-08-02 11:48] LABS: EDSTREPNEGPOS1 Negative (Negative)
--- OUTSIDE RECORDS SUMMARY | 2025-08-02 12:18 | XMS_ITS | Clinical Summary ---
Author Organization [facility] Address [address] [place] [address] Phone Care Team Providers Care Risk Management Director Name Role Phone Provider, None Primary Care [...] of Treatment Not on file Insurance MEDICAID [place] Care Teams Risk Management Director Relationship Specialty Start Date End Date Provider, None [place] PCP - General 12/13/22
--- OUTSIDE RECORDS SUMMARY | 2025-08-02 12:18 | XMS_ITS | Clinical Summary ---
Author Organization [facility] Address [address] [place] [id number] Care Team Providers Care Bakery Supervisor Name Role Phone No, Physician Primary Care Provider [phone] Allergies No known active allergies Medications ondansetron ODT (ZOFRAN-ODT) 4 mg disintegrating tablet Dissolve 1 tablet oral every 4 hours as needed for nausea or vomiting. 15 tablet 08/19/20 21 Active naproxen (NAPROSYN) 500 mg tablet Take 1 tablet (500 mg total) by mouth 2 (two) times a day as needed for pain Take with food. 30 tablet 09/15/20 23 Active cyclobenzaprine (FLEXERIL) 10 mg tablet Take 1 tablet (10 mg total) by mouth 2 (two) times a day as needed for muscle spasms 20 tablet 09/15/20 23 Active amoxicillin-clavul anate (AUGMENTIN) 875-125 mg per tablet Take 1 tablet by mouth every 12 (twelve) hours 14 tablet 05/22/20 25 Active ibuprofen (ADVIL,MOTRIN) 600 mg tablet Take 1 tablet (600 mg total) by mouth every 6 (six) hours as needed for pain 20 tablet 05/22/20 25 Active benzocaine 20 % gel Apply 1 Application to teeth 4 (four) times a day as needed (toothache) 5.25 g 05/22/20 25 Active HYDROcodone-acetam inophen (NORCO) 5-325 mg per tabletIndications: Pain Take 1 tablet by mouth every 6 (six) hours as needed for pain 12 tablet 05/22/20 25 Active chlorhexidine (PERIDEX) 0.12 % oral rinse Swish and spit 15 mL 2 (two) times a day 120 mL 05/22/20 25 Active Active Problems Problem Noted Date Diagnosed Date Fracture of metacarpal neck of left hand, closed 12/08/2015 Encounters Date Type Department Care Team Description 05/22/2025 9:24 AM CDT - 05/22/2025 10:01 AM CDT Emergency [facility] Emergency Department [address] [place] [address] Pain due to dental caries (Primary Dx) Discharge Disposition: Discharge to home or self care from Last 3 Months Medical History Medical History Date Comments Seizures (HCC) Adhd Social History Tobacco Use Types Packs/Day Years Used Date Smoking Tobacco: Every Day Smokeless Tobacco: Never Personal Safety Answer Date Recorded Have you ever been in or are you currently in a harmful physical or emotional relationship or is someone making you feel afraid or unsafe? 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 Gender Identity Not on file Sexual Orientation Not on file Last Filed Vital Signs Vital Sign Reading Time Taken Comments Blood Pressure 144/84 05/22/2025 9:23 AM CDT Pulse 63 05/22/2025 9:23 AM CDT Temperature 36.8 C (98.2 F) 05/22/2025 9:21 AM CDT Respiratory Rate 15 05/22/2025 9:23 AM CDT Oxygen Saturation 99% 05/22/2025 9:23 AM CDT Inhaled Oxygen Concentration - - Weight 77.1 kg (170 lb) 05/22/2025 9:23 AM CDT Height 182.9 cm (6') 05/22/2025 9:23 AM CDT Body Mass Index 23.06 05/22/2025 9:23 AM CDT Plan of Treatment Health Maintenance Due Date Last Done Comments Depression Screening 2001 Hepatitis C Screening 2001 Pneumococcal vaccine <65 (1 of 1 - PPSV23, PCV20, or PCV21) 2007 03/24/2003, 01/02/2002, 2001 Regular Well Visit/Exam 18-64 2019 DTaP/Tdap/Td Vaccine (7 - Td or Tdap) 05/15/2022 05/15/2012, 04/22/2006, 03/24/2003, Additional history exists Influenza Vaccine (#1) 2025 Hepatitis B Screening Completed 01/02/2002 , 2001, 2001 HPV Vaccines Completed 12/18/2017, 04/25/2016 Varicella Vaccines Completed 04/29/2019, 0 04/25/2016, 05/20/2002 Insurance [facility] OTHER Address: [facility] [address] [place] [address] [place] [address] Care Teams Bakery Supervisor Relationship Specialty Start Date End Date No, Physician PCP - General 09/15/23
== END 2025-08-02 11:58 | disposition home or self-care (01) ==
PROVIDERS: Emergency Provider Nurse Practitioner Family
DX: J00 Acute nasopharyngitis [common cold] (principal); F17.290 Nicotine dependence, other tobacco product, uncomplicated; F12.90 Cannabis use, unspecified, uncomplicated
CPT/HCPCS: 87081; 87880; 99213; G0463

== ENCOUNTER 2025-08-30 10:37 | Emergency (ER) | payer BC, SELFPAY ==
[2025-08-30 10:42] VITALS: BP 134/71; PULSE 77; RESP 16; TEMP 36.9; O2SAT 100
[2025-08-30 10:57] LABS: EDSTREPNEGPOS1 Negative (Negative)
--- NOTE | 2025-08-30 11:13 | ED.URI ---
HPI - URI/Sore Throat General Chief Complaint: Upper Respiratory Infection Stated Complaint: Sore Throat Time Seen by Provider: 08/30/25 11:00 Source: patient and RN notes reviewed Mode of arrival: ambulatory Limitations: no limitations History of Present Illness HPI Narrative: 25-year-old male patient presents Express Care with significant other complaining of sore throat for 3 days. Patient also reports pain with swallowing. Patient denies any other symptoms. Patient denies any significant past medical problems. Patient has not tried anything [id number] to help with symptoms. Related Data Allergies Allergy/AdvReac Type Severity Reaction Status Date / Time No Known Drug Allergies Allergy Unknown Unknown Verified 08/02/25 11:37 Review of Systems Review of Systems: CONSTITUTIONAL: Denies fever, chills, or sweats. EYES: Denies visual changes, redness, or discharge. ENT: Denies rhinorrhea, congestion, dysplasia, or otalgia. Positive for sore throat CARDIOVASCULAR: Denies chest pain, palpitations, or edema. RESPIRATORY: Denies cough or dyspnea. GASTROINTESTINAL: Denies abdominal pain, nausea, vomiting, or diarrhea. GENITOURINARY: Denies dysuria or hematuria. SKIN: Denies rash or itching. MUSCULOSKELETAL: Denies back pain, joint pain, or myalgia. NEUROLOGIC: Denies headache, numbness, or weakness. PSYCHIATRIC: Denies anxiety or depression. All other systems reviewed are negative, except as documented in HPI. [facility] Past Medical History Medical History OCD (obsessive compulsive disorder) Fracture of left wrist Bipolar 1 disorder ADHD Surgical History Surgical History No pertinent past surgical history Family History Family History Mother Family history non-contributory Social History Social History Smoking packs per day: 1 Smoking cigarettes per day: 20.0 Years smoked: 5 Smoking pack-years: 5.00 Smoking status: Current every day smoker Tobacco type: cigarettes and e-cigarettes/vaping Additional smoking assessment comments: Former cigarette smoker now vapes Alcohol intake: unknown Substance use: unknown Living arrangements: with family Gender identity (if verbalized by the patient): Male Comments At the time of my signature, I reviewed and agree with the nursing past medical, surgical, social, and family history. There is no relevant family history pertinent to the patient complaint. Exam Narrative: GENERAL: This is a well-nourished, well-developed adult, in no apparent distress. They are non ill-appearing, nontoxic appearing. HEAD: normocephalic, atraumatic. EYES: Sclera clear/white. Conjunctiva normal. Vision is grossly intact. Extraocular movements intact EARS: External ears normal, auditory canals clear and without drainage, TMs normal without perforation. Hearing grossly intact. NOSE: External nose normal with no obvious nasal discharge, nasal turbinates without redness, no rhinorrhea. THROAT: Mucous membranes moist, posterior pharynx erythematous. Uvula midline. Postnasal drip present NECK: Neck supple, non-tender without lymphadenopathy, masses or thyromegaly. CARDIOVASCULAR: Regular rate and rhythm without murmurs, gallops, or rubs. RESPIRATORY: Clear to auscultation. Breath sounds equal bilaterally. No wheezes, rales, or rhonchi. SKIN: warm, Dry, intact with no suspicious lesions or rash, good texture and turgor. NEURO: awake, alert, and oriented to person, place and time. There were no obvious focal neurologic abnormalities. EXTREMITIES: No joint tenderness, effusion, or edema noted. BACK: Nontender without deformity. Course Course Level of Care: Express Care Visit Vital Signs Vital signs: Vital Signs Temperature 98.4 F 08/30/25 10:42 Pulse Rate 77 08/30/25 10:42 Respiratory Rate 16 08/30/25 10:42 Blood Pressure 134/71 08/30/25 10:42 Pulse Oximetry 100 08/30/25 10:42 Oxygen Delivery Room Air 08/30/25 10:42 Temperature 98.4 F 08/30/25 10:42 Pulse Rate 77 08/30/25 10:42 Respiratory Rate 16 08/30/25 10:42 Blood Pressure 134/71 08/30/25 10:42 Pulse Oximetry 100 08/30/25 10:42 Oxygen Delivery Room Air 08/30/25 10:42 MDM MDM Narrative Medical decision making narrative: Rapid strep negative. A throat culture is pending. Likely viral in etiology. Given patient's pain will give a course of prednisone. Discussed physical exam findings. Advised supportive measures and signs/symptoms to go to the ER. Pt is appropriate for outpt treatment and f/u. Differential Diagnosis Differential Diagnosis: Differential diagnostic considerations for upper respiratory infection include upper respiratory infection, croup, otitis media, sinusitis, viral infection, bronchitis, influenza, pharyngitis, strep, uvulitis. Medical Records I have reviewed the following patient records and this information was taken into consideration when formulating the assessment and plan.: previous clinic visits Lab Data MDM Lab Attestation statement: I personally reviewed the patient's lab results. Labs: Lab Results 08/30/25 Range/Units 10:44 POC Grp A Strep Screen Negative (Negative) Critical Care Time Critical Care Time Critical Care Time: No Discharge Plan Discharge Clinical Impression: Pharyngitis Qualifiers: Pharyngitis/tonsillitis etiology: unspecified etiology Qualified Code(s): J02.9 - Acute pharyngitis, unspecified Patient Disposition: Home Condition: Stable Instructions: Antibiotic Form, Pharyngitis (ED) Additional Instructions: Take the prednisone as directed. Your rapid strep swab was negative today at [facility]. You will be notified in a few days if the culture comes back positive for strep, and appropriate antibiotics will be called in for you at that time. Your symptoms are likely due to a viral illness, which is not treated with antibiotics. Viral symptoms can be present for up to 10-14 days. Take Tylenol or ibuprofen as needed for fever or pain. Follow the instructions on the bottle. Rest and stay hydrated. Follow up with your PCP in 5-7 days if symptoms are not improving. Go to the ER immediately if you develop chest pain, vomiting, difficulty breathing or swallowing, or any serious concerns. Patient Language: Tajik Prescriptions: New prednisone 20 mg tablet 40 mg PO DAILY 3 Days Qty: 6 0RF No Action prednisone 20 mg tablet 40 mg PO DAILY 5 Days Qty: 10 0RF promethazine-DM 6.25-15 mg/5 mL syrup 5 ml PO Q4-6H PRN (Reason: cough) Qty: 118 0RF Follow-up/Referrals: PHYSICIAN,COPPER PLATER [Primary Care Provider, Internal Medicine] Time of Disposition: 11:11
== END 2025-08-30 11:18 | disposition home or self-care (01) ==
DX: J02.9 Acute pharyngitis, unspecified (principal); F17.290 Nicotine dependence, other tobacco product, uncomplicated
CPT/HCPCS: 87081; 87880; 99213; G0463